=== PATIENT | female | born 1970 | race Caucasian/White ===

== ENCOUNTER 2016-12-13 07:33 | Day surgery (SDC) | payer BC ==
[~2016-12-13 07:33] MED LIST: Bupivacaine 0.25%/EPINEPHrine 1:200,000 10 ML SDV ONE; Midazolam 1 MG/ML 2 ML SDV ONE; Ondansetron 4 MG/2 ML SDV ONE; Propofol 200 MG/20 ML SDV ONE; Tetracaine 0.5% Ophth Soln 15 ML Bottle ONE; fentaNYL 100 MCG/2 ML SDV ONE
[2016-12-13] MEDS ORDERED: Dexamethasone/Tobramycin 0.1-0.3% Ophth Oint 3.5 GM Tube ONE (07:36)
[2016-12-13] MEDS ORDERED: Propofol 200 MG/20 ML SDV ONE (07:38)
[2016-12-13] MEDS ORDERED: ceFAZolin 2 GM in Premix Bag 1 BAG IV ONE (08:00)
[2016-12-13] MEDS ORDERED: Dexamethasone/Tobramycin 0.1-0.3% Ophth Oint 3.5 GM Tube EYEBOTH SCH (08:00)
[2016-12-13] MEDS ORDERED: Bupivacaine 0.25%/EPINEPHrine 1:200,000 10 ML SDV INJECT ONE (08:00)
[2016-12-13] MEDS ORDERED: traMADol 50 MG Tab PO PRN (08:00)
[2016-12-13] MEDS ORDERED: Lactated Ringers 1,000 ML IV SCH (08:00)
--- NOTE | 2016-12-13 08:00 | PCM.PREANE ---
Preanesthetic Assessment - Anesthesia/Transfusion/Family Hx Anesthesia History: Prior Anesthesia Without Reaction Family History of Anesthesia Reaction: No Transfusion History: No Prior Transfusion(s) Intubation History: Unknown - Review of Systems General: No Symptoms Pulmonary: No Symptoms Cardiovascular: No Symptoms Gastrointestinal: No symptoms Neurological: No Symptoms Other: Reports: None - Physical Assessment O2 Sat by Pulse Oximetry: 96 Respiratory Rate: 16 Vital Signs: Last Vital Signs Temp 36.2 C 12/13/16 07:49 Pulse 78 12/13/16 07:49 Resp 16 12/13/16 07:49 BP 128/79 12/13/16 07:49 Pulse Ox 96 12/13/16 07:49 Height: 1.55 m Weight: 89.358 kg ASA Class: 2 Mental Status: Alert & Oriented x3 Airway Class: Mallampati = 2 Dentition: Reports: Normal Dentition, Broken Tooth/Teeth (small chip front upper tooth) Thyro-Mental Finger Breadths: 3 Mouth Opening Finger Breadths: 2 ROM/Head Extension: Full Lungs: Clear to auscultation, Normal respiratory effort Cardiovascular: Regular Rate, Regular Rhythm - Allergies Allergies/Adverse Reactions: Allergies Allergy/AdvReac Type Severity Reaction Status Date / Time No Known Allergies Allergy Verified 12/09/16 08:20 - Blood Blood Available: No - Anesthesia Plan Pre-Op Medication Ordered: None - Acknowledgements Anesthesia Type Planned: MAC Pt an Appropriate Candidate for the Planned Anesthesia: Yes Alternatives and Risks of Anesthesia Discussed w Pt/Guardian: Yes Pt/Guardian Understands and Agrees with Anesthesia Plan: Yes PreAnesthesia Questionnaire HEENT History: Reports: Other (See Below) Other HEENT History: glasses Genitourinary History: Reports: 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 [No Known Home Meds] 12/09/16 [History] - CURRENT (IN HOUSE) MEDS Current Meds: Current Medications Bupivacaine HCl/Epinephrine Bitart (Marcaine 0.25%/Epinephrine 1:200,000) 10 ml INJECT ONETIME ONE Stop: 12/13/16 08:01 Lactated Ringer's (Ringers, Lactated) 1,000 mls @ 125 mls/hr IV ASDIRECTED [facility] Last Admin: 12/13/16 07:54 Dose: 125 mls/hr Cefazolin Sodium/Dextrose 2 gm (/ Premix) 50 mls @ 100 mls/hr IV ONETIME ONE Stop: 12/13/16 08:29 Tobramycin/Dexamethasone (Tobradex Ophth Oint) 0 gm EYEBOTH Q4H GILL Tramadol HCl (Ultram) 50 mg PO Q4H PRN PRN Reason: Pain Discontinued Medications Fentanyl (Sublimaze) Confirm Administered Dose 100 mcg .ROUTE .STK-MED ONE Stop: 12/13/16 07:33 Midazolam HCl (Versed 1 Mg/Ml) Confirm Administered Dose 2 mg .ROUTE .STK-MED ONE Stop: 12/13/16 07:33 Ondansetron HCl (Zofran) Confirm Administered Dose 4 mg .ROUTE .STK-MED ONE Stop: 12/13/16 07:33 Propofol (Diprivan 20 Ml) Confirm Administered Dose 200 mg .ROUTE .STK-MED ONE Stop: 12/13/16 07:33 Propofol (Diprivan 20 Ml) Confirm Administered Dose 200 mg .ROUTE .STK-MED ONE Stop: 12/13/16 07:39 Tetracaine (Tetracaine 0.5% Ophth Soln) Confirm Administered Dose 15 ml .ROUTE .STK-MED ONE Stop: 12/13/16 07:31 Tobramycin/Dexamethasone (Tobradex Ophth Oint) Confirm Administered Dose 3.5 gm .ROUTE .STK-MED ONE Stop: 12/13/16 07:37
--- NOTE | 2016-12-13 10:35 | PCM.POSTAN ---
POST ANESTHESIA ASSESSMENT - MENTAL STATUS Mental Status: alert, oriented - RESPIRATORY Respiratory Status: respiratory rate WNL, airway patent, O2 saturation stable - CARDIOVASCULAR CV Status: pulse rate WNL, blood pressure stable - GASTROINTESTINAL GI Status: no symptoms - PAIN Pain Score: 0 - POST OP HYDRATION Hydration Status: adequate & stable
--- NOTE | 2016-12-13 10:36 | PCM48HPAN ---
Post Anesthesia Note - EVALUATION WITHIN 48HRS OF ANESTHETIC Vital Signs in Normal Range: Yes Patient Participated in Evaluation: Yes Respiratory Function Stable: Yes Airway Patent: Yes Cardiovascular Function Stable: Yes Hydration Status Stable: Yes Pain Control Satisfactory: Yes Nausea and Vomiting Control Satisfactory: Yes Mental Status Recovered: Yes
[2016-12-13 11:00] VITALS: BP 118/67
--- NOTE | 2016-12-13 15:11 | PCM.OPNOTE ---
- General Post-Op/Procedure Note Date of Surgery/Procedure: 12/13/16 Operative Procedure(s): excision of right lower eyelid lesion 1.5cm with complex 1.5cm closure of the lower lid. Pre Op Diagnosis: right lower eyelid nevus pending pathology Post-Op Diagnosis: Same Anesthesia Technique: Local, MAC Primary Surgeon: Nilam Akins Outdoor Studies Director: Bertha Baires Complications: None Condition: Good Free Text/Narrative:: Intake & Output 12/12/16 12/13/16 12/13/16 23:59 07:59 15:59 Intake Total 1200 Balance 1200
--- NOTE | 2016-12-18 13:29 | OR ---
SURGEON: ABEBA MOLINA MD DATE OF PROCEDURE: 12/13/2016 PREOPERATIVE DIAGNOSIS: Right lower eyelid nevus. POSTOP DIAGNOSIS: Right lower eyelid nevus causing visual obstruction and irritation with interning of eyelashes. PROCEDURES: Excision of right lower eyelid benign lesion 1.5 cm with complex 1.5 cm closure of the lower lid via wedge excision. ANALYSIS CONSULTANT: Bertha Baires. ANESTHESIA: Local MAC. INDICATIONS: Ms. Mcneal is a 45-year-old female seen today in evaluation for right lower eyelid lesion. It is causing the irritation and continues to grow the distortion of the eyelids. This is causing additional irritation. Risks and benefits of excision were discussed with her, and she was in agreement to proceed. Given its appearance, it does appear to be a nevus; however, we cannot exclude any other malignant lesion. Given the changes, I would recommend excision. She would like to proceed. PROCEDURE IN DETAIL: After informed consent was obtained and placed on the chart, the patient was brought to the operating theater and laid in supine position. After adequate local MAC anesthetic was obtained, the corneal protector was placed and TobraDex ointment for lubrication. Tetracaine drops were used to anesthetize the eye prior to this. Once adequately prepped, attention was then paid to the right lower eyelid nevus. A wedge excision was designed and an iris scissor was used to dissect this full-thickness. Once excised, meticulous hemostasis was obtained and deep 5-0 Monocryl sutures were used to reapproximate the castro line and the lower lash line. Once this was completed, attention was then paid to closure of the skin using a 5-0 fast-absorbing gut suture, which was tied down to avoid irritation of the eyes with the suture end. Once this was completed, the area was dressed with TobraDex. FOLLOWUP INSTRUCTIONS: The patient will see us in clinic in one week or sooner if any problems, questions, or concerns. CHRISGGTCHRIS / BEBE /[id number]
== END 2016-12-13 10:34 | disposition home or self-care (01) ==
LOC: MW.SDS 07:33
PROVIDERS: ATTEND Plastic Surgery
DX: D22.11 Melanocytic nevi of right eyelid, including canthus (principal); E66.9 Obesity, unspecified; Z68.30 Body mass index [BMI] 30.0-30.9, adult; Z90.49 Acquired absence of other specified parts of digestive tract; Z88.1 Allergy status to other antibiotic agents; Z91.018 Allergy to other foods; Z90.710 Acquired absence of both cervix and uterus; Z98.51 Tubal ligation status; Z98.890 Other specified postprocedural states; Z79.899 Other long term (current) drug therapy
CPT/HCPCS: 67840; 88305; A9270; J2250; J2405; J3010; J7120; 00103; J2704

== ENCOUNTER 2016-12-29 13:54 | Emergency (ER) | payer BC ==
[2016-12-29 14:09] VITALS: BP 150/74
[2016-12-29] MEDS ORDERED: Proparacaine 0.5% Ophth Soln 15 ML Bottle EYERT ONE (14:15)
[2016-12-29] MEDS ORDERED: Sulfacetamide 10% Ophth Soln 15 ML Bottle EYERT ONE (14:39)
--- NOTE | 2016-12-29 14:47 | EDM.PDOC ---
ED HPI GENERAL MEDICAL PROBLEM - General Chief Complaint: Eye Problems Stated Complaint: PAIN RT EYE Time Seen by Provider: 12/29/16 14:15 Source of Information: Reports: Patient History Limitations: Reports: No Limitations - History of Present Illness INITIAL COMMENTS - FREE TEXT/NARRATIVE: HISTORY AND PHYSICAL: History of present illness: [Patient comes to the ER for evaluation of a lesion to her R lower eyelid. She had a growth removed from her lower eyelid on December [address] Akins. Was found to be noncancerous. Dissolvable sutures were placed and patient believes that all have dissolved. Patient states that she has had no complications and Dr. Akins has been pleased with her progress. She was prescribed neomycin eyedrops and developed increased redness and swelling to her eye. She was switched to TobraDex with the same results. Patient is concerned as her eye appears more erythematous and mattery. She denies pain to her sclera. No blurred vision or double vision other than that due to mattering. Feels sensitive to light.] Review of systems: As per history of present illness and below otherwise all systems reviewed and negative. Past medical history: As per history of present illness and as reviewed below otherwise noncontributory. Surgical history: As per history of present illness and as reviewed below otherwise noncontributory. Social history: No reported history of drug or alcohol abuse. Family history: As per history of present illness and as reviewed below otherwise noncontributory. Physical exam: HEENT: Atraumatic, normocephalic. Wearing sunglasses. Proparacaine drops are applied to R eye to ease examination. Healing excision site to mid right lower eyelid. White granulation tissue present. Sutures present to the deep aspect of the site. No injection to sclera. Lower conjunctiva is erythematous. No eye swelling or erythematous streaking surrounding eye. Extremities: Atraumatic. Neuro: Awake, alert, oriented. Motor and sensory unremarkable throughout. Exam nonfocal. Therapeutics: [Sulfacetamide eye drops] Impression: [Healing biopsy site R conjunctivitis] Plan: [Sulfacetamide eye drops 2 drops to R eye every 3-4 hours. Follow up with Dr. Akins tomorrow. She is given a note excusing her from work tomorrow. She is in agreement w/ today's plan. ] Definitive disposition and diagnosis as appropriate pending reevaluation and review of above. Left Eye Pain Score (Numeric/FACES): 8 - Related Data Allergies Allergy/AdvReac Type Severity Reaction Status Date / Time dexamethasone Allergy Swollen Verified 12/29/16 14:03 Eyes melon Allergy Rash Verified 12/13/16 08:17 neomycin Allergy Swollen Verified 12/13/16 09:17 Eyes strawberry Allergy Rash Verified 12/13/16 08:17 tobramycin Allergy Swollen Verified 12/29/16 14:03 Eyes Home Meds: Home Meds . 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: Neurological History: Reports: Migraines Endocrine/Metabolic History: Reports: Obesity/BMI 30+ - Past Surgical History Head Surgeries/Procedures: Reports: None HEENT Surgical History: Reports: Adenoidectomy, Tonsillectomy GI Surgical History: Reports: Cholecystectomy Female Surgical History: Reports: Hysterectomy, Tubal Ligation Social & Family History - Family History Family Medical History: Noncontributory - Tobacco Use Smoking Status *Q: Never Smoker Second Hand Smoke Exposure: No - Alcohol Use Days Per Week of Alcohol Use: 0 - Recreational Drug Use Recreational Drug Use: No ED ROS GENERAL - Review of Systems Review Of Systems: ROS reveals no pertinent complaints other than HPI. ED EXAM GENERAL W FULL EYE - Physical Exam Exam: See Below Course - Vital Signs Last Recorded V/S: Last Vital Signs Temp 97.3 F 12/29/16 14:05 Pulse 74 12/29/16 14:05 Resp 18 12/29/16 14:05 BP 150/74 H 12/29/16 14:05 Pulse Ox 98 12/29/16 14:05 - Orders/Labs/Meds Meds: Medications Discontinued Medications Generic Name Dose Route Start Last Admin Trade Name Freq PRN Reason Stop Dose Admin Proparacaine HCl 2 ml 12/29/16 14:15 12/29/16 14:23 Proparacaine 0.5% Ophth Soln EYERT 12/29/16 14:16 2 drop ONETIME ONE Administration Sulfacetamide 1 ml 12/29/16 14:39 12/29/16 14:56 Bleph-10 Ophth Soln EYERT 12/29/16 14:40 2 drop ONETIME ONE Administration Departure - Departure Time of Disposition: 14:45 Disposition: Home, Self-Care 01 Condition: Good Clinical Impression: Conjunctivitis Qualifiers: Conjunctivitis type: acute Acute conjunctivitis type: unspecified Laterality: right Qualified Code(s): H10.31 - Unspecified acute conjunctivitis, right eye - Discharge Information Instructions: Bacterial Conjunctivitis Referrals: Day Hebert DO [Primary Care Provider] - Forms: ED Department Discharge Additional Instructions: The following information is given to patients seen in the emergency department who are being discharged to home. This information is to outline your options for follow-up care. We provide all patients seen in our emergency department with a follow-up referral. The need for follow-up, as well as the timing and circumstances, are variable depending upon the specifics of your emergency department visit. If you don't have a primary care physician on staff, we will provide you with a referral. We always advise you to contact your personal physician following an emergency department visit to inform them of the circumstance of the visit and for follow-up with them and/or the need for any referrals to a consulting specialist. The emergency department will also refer you to a specialist when appropriate. This referral assures that you have the opportunity for follow-up care with a specialist. All of these measure are taken in an effort to provide you with optimal care, which includes your follow-up. Under all circumstances we always encourage you to contact your private physician who remains a resource for coordinating your care. When calling for follow-up care, please make the office aware that this follow-up is from your recent emergency room visit. If for any reason you are refused follow-up, please contact the [facility] emergency department at and asked to speak to the emergency department charge nurse. [facility]- [facility] [address] [place] [address], [address] [place] [address] Akins tomorrow. Use sulfacetamide drops. 2 drops every 4 hours. Return to ER as needed as discussed.
== END 2016-12-29 15:03 | disposition home or self-care (01) ==
LOC: MW.ED 13:54
DX: H10.31 Unspecified acute conjunctivitis, right eye (principal); E66.9 Obesity, unspecified; Z88.8 Allergy status to other drugs, medicaments and biological substances; Z88.1 Allergy status to other antibiotic agents; Z98.890 Other specified postprocedural states; Z90.710 Acquired absence of both cervix and uterus; Z90.49 Acquired absence of other specified parts of digestive tract
CPT/HCPCS: 99282; A9270; 99283

== ENCOUNTER 2017-01-01 10:44 | Day surgery (SDC) | payer BC ==
[~2017-01-01 10:44] MED LIST changes: +Dexamethasone/Tobramycin 0.1-0.3% Ophth Oint 3.5 GM Tube ONE; -Midazolam 1 MG/ML 2 ML SDV ONE; -Ondansetron 4 MG/2 ML SDV ONE; -Propofol 200 MG/20 ML SDV ONE; -fentaNYL 100 MCG/2 ML SDV ONE
[2017-01-01] MEDS ORDERED: Lactated Ringers 1,000 ML IV SCH (11:00)
--- NOTE | 2017-01-01 11:18 | PCM.PREANE ---
Preanesthetic Assessment - Anesthesia/Transfusion/Family Hx Anesthesia History: Prior Anesthesia Without Reaction Family History of Anesthesia Reaction: No Transfusion History: No Prior Transfusion(s) Intubation History: Unknown - Review of Systems General: No Symptoms Pulmonary: No Symptoms Cardiovascular: No Symptoms Gastrointestinal: No Symptoms Neurological: No Symptoms Other: Reports: None - Physical Assessment Height: 1.55 m Weight: 88.9 kg ASA Class: 2 Mental Status: Alert & Oriented x3 Airway Class: Mallampati = 2 Dentition: Reports: Normal Dentition Thyro-Mental Finger Breadths: 2 Mouth Opening Finger Breadths: 3 ROM/Head Extension: Full Lungs: Clear to Auscultation, Normal Respiratory Effort Cardiovascular: Regular Rate, Regular Rhythm - Allergies Allergies/Adverse Reactions: Allergies Allergy/AdvReac Type Severity Reaction Status Date / Time dexamethasone Allergy Swollen Verified 12/29/16 14:03 Eyes melon Allergy Rash Verified 12/13/16 08:17 neomycin Allergy Swollen Verified 12/13/16 09:17 Eyes strawberry Allergy Rash Verified 12/13/16 08:17 tobramycin Allergy Swollen Verified 12/29/16 14:03 Eyes - Blood Blood Available: No - Anesthesia Plan Pre-Op Medication Ordered: None - Acknowledgements Anesthesia Type Planned: MAC Pt an Appropriate Candidate for the Planned Anesthesia: Yes Alternatives and Risks of Anesthesia Discussed w Pt/Guardian: Yes Pt/Guardian Understands and Agrees with Anesthesia Plan: Yes PreAnesthesia Questionnaire HEENT History: Reports: Other (See Below) Other HEENT History: glasses Genitourinary History: Reports: 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: Neurological History: Reports: Migraines Endocrine/Metabolic History: Reports: Obesity/BMI 30+ - Past Surgical History Head Surgeries/Procedures: Reports: None HEENT Surgical History: Reports: Adenoidectomy, Tonsillectomy Other HEENT Surgeries/Procedures: exc of rt eyelid lesion 2 weeks ago,followed by wound dehiscence GI Surgical History: Reports: Cholecystectomy Female Surgical History: Reports: Hysterectomy, Tubal Ligation - SUBSTANCE USE Smoking Status *Q: Never Smoker Second Hand Smoke Exposure: No Days Per Week of Alcohol Use: 0 Recreational Drug Use History: No - HOME MEDS Home Medications: Home Meds Dexamethasone [Decadron 0.1% Ophth Soln] 2 drop EYERT BID 12/31/16 [History] - CURRENT (IN HOUSE) MEDS Current Meds: Current Medications Lactated Ringer's (Ringers, Lactated) 1,000 mls @ 100 mls/hr IV ASDIRECTED GILL Discontinued Medications Bupivacaine HCl/Epinephrine Bitart (Marcaine 0.25%/Epinephrine 1:200,000) Confirm Administered Dose 10 ml .ROUTE .STK-MED ONE Stop: 01/01/17 07:24 Tetracaine (Tetracaine 0.5% Ophth Soln) Confirm Administered Dose 15 ml .ROUTE .STK-MED ONE Stop: 01/01/17 10:09 Tobramycin/Dexamethasone (Tobradex Ophth Oint) Confirm Administered Dose 3.5 gm .ROUTE .STK-MED ONE Stop: 01/01/17 10:09
[2017-01-01] MEDS ORDERED: Ondansetron 4 MG/2 ML SDV ONE (13:06)
[2017-01-01] MEDS ORDERED: Propofol 200 MG/20 ML SDV ONE (13:06)
[2017-01-01] MEDS ORDERED: Midazolam 1 MG/ML 2 ML SDV ONE (13:07)
[2017-01-01] MEDS ORDERED: fentaNYL 100 MCG/2 ML SDV ONE (13:07)
[2017-01-01] MEDS ORDERED: Ketorolac 30 MG/ML SDV ONE (13:10)
[2017-01-01] MEDS ORDERED: ceFAZolin 1 GM Vial ONE (13:38)
[2017-01-01 14:46] VITALS: BP 101/75
--- NOTE | 2017-01-02 09:14 | PCM.OPNOTE ---
- General Post-Op/Procedure Note Date of Surgery/Procedure: 01/01/17 Operative Procedure(s): repair of wound dehiscence right lower eyelid Pre Op Diagnosis: wound dehiscence right lower eyelid Post-Op Diagnosis: Same Anesthesia Technique: Local, MAC Primary Surgeon: Nilam Akins Clinical Secretary: Bertha Baires Complications: None Condition: Good Free Text/Narrative:: [id number]
--- NOTE | 2017-01-02 10:35 | OR ---
SURGEON: ABEBA MOLINA MD DATE OF PROCEDURE: 01/01/2017 PREOPERATIVE DIAGNOSIS: Wound dehiscence, right lower eyelid. POSTOPERATIVE DIAGNOSIS: Wound dehiscence, right lower eyelid. PROCEDURE: Repair of wound dehiscence, right lower eyelid 1.5 cm, simple repair. ANESTHESIA: Local MAC. TAR MAN: CAREY Johnson. INDICATIONS: Ms. Mcneal is a 46-year-old female, who had a wedge excision of her right lower eyelid for a changing nevus. She has unfortunately opened the wound some at the margin of the eyelid and deep stitch is now irritating the cornea. Risks and benefits of re-repair of the wound dehiscence were discussed with her and she was in agreement to proceed. Risks were including, but not limited to, bleeding, infection, damage to underlying or overlying structures, possible need for future interventions and possible scarring. PROCEDURE IN DETAIL: After informed consent was obtained and placed on the chart, the patient was brought to the operating theater and laid in supine position. After adequate local MAC anesthetic was obtained, the area was prepped and draped and a time- out was completed to confirm side and site. Topical tetracaine eyedrops were used to anesthetize the eye and local 0.25% Marcaine with epinephrine was injected into the area for pain control. Once this was completed, the area was copiously irrigated and prepped and draped in a normal fashion using a Betadine cleansing solution. The wound edges were freshened with the 15 blade by scrapping and then closed in an interrupted fashion using a 6-0 Prolene suture for the skin edge. This was done with two horizontal mattress stitches and the tails were left long and Steri-Strip to the cheek. She tolerated this well and all counts and needles were correct at the end of the case. FOLLOWUP INSTRUCTIONS: The patient will see us in 5 to 7 days for suture removal sooner if any problems, questions, or concerns. [place] / BEBE /[id number]
== END 2017-01-01 14:40 | disposition home or self-care (01) ==
LOC: MW.SDS 10:44
PROVIDERS: ATTEND Plastic Surgery
DX: T81.31XA Disruption of external operation (surgical) wound, not elsewhere classified, initial encounter (principal); D22.11 Melanocytic nevi of right eyelid, including canthus; Z98.890 Other specified postprocedural states
CPT/HCPCS: 12020; J0690; J2250; J2405; J3010; J7120; 00300; A9270-GY; J1885; J2704

== ENCOUNTER 2023-04-23 09:13 | Emergency (ER) | payer OTHER, BC ==
[2023-04-23] MEDS ORDERED: Diphtheria,Pertussis(Acell),Tetanus Vaccine 0.5 ML Syringe IM ONE (09:23)
[2023-04-23] MEDS ORDERED: Lidocaine 1% 5 ML VIAL INJECT ONE (09:23)
[2023-04-23 09:55] VITALS: BP 133/77; PULSE 78
== END 2023-04-23 09:58 | disposition home or self-care (01) ==
LOC: MW.ED 09:13
DX: S61.211A Laceration without foreign body of left index finger without damage to nail, initial encounter (principal); E66.9 Obesity, unspecified; Z90.49 Acquired absence of other specified parts of digestive tract; Z90.710 Acquired absence of both cervix and uterus; Z88.8 Allergy status to other drugs, medicaments and biological substances; Z91.018 Allergy to other foods; Z68.30 Body mass index [BMI] 30.0-30.9, adult; Z88.1 Allergy status to other antibiotic agents; Z23 Encounter for immunization; W26.8XXA Contact with other sharp object(s), not elsewhere classified, initial encounter; Y99.0 Civilian activity done for income or pay
CPT/HCPCS: 12002; 90471; 90715; 99282-25; 99283; J3490

== ENCOUNTER 2023-05-22 11:11 | Day surgery (SDC) | payer BC, OTHER ==
[~2023-05-22 11:11] MED LIST changes: -Bupivacaine 0.25%/EPINEPHrine 1:200,000 10 ML SDV ONE; -Dexamethasone/Tobramycin 0.1-0.3% Ophth Oint 3.5 GM Tube ONE; +Lactated Ringers 1,000 ML IV SCH; +Sodium Chloride 0.9% 10 ML Syringe FLUSH PRN; +Sodium Chloride 0.9% 2.5 ML Syringe FLUSH PRN; +Sodium Chloride 0.9% 20 ML SDV IV PRN; -Tetracaine 0.5% Ophth Soln 15 ML Bottle ONE
[2023-05-22] MEDS ORDERED: propofoL 50 ML ONE (13:34)
[2023-05-22] MEDS ORDERED: Lidocaine 2% 5 ML SDV ONE (13:38)
[2023-05-22] MEDS ORDERED: Ondansetron 4 MG/2 ML SDV ONE (13:38)
[2023-05-22 14:43] VITALS: PULSE 72
[2023-05-22 14:54] VITALS: BP 124/72
== END 2023-05-22 15:21 | disposition home or self-care (01) ==
LOC: MW.SDS 11:11
PROVIDERS: ATTEND Surgery
DX: K31.7 Polyp of stomach and duodenum (principal); I78.1 Nevus, non-neoplastic; K21.9 Gastro-esophageal reflux disease without esophagitis; K59.09 Other constipation; E66.9 Obesity, unspecified; Z68.30 Body mass index [BMI] 30.0-30.9, adult; Z79.899 Other long term (current) drug therapy; Z88.8 Allergy status to other drugs, medicaments and biological substances
CPT/HCPCS: 43239; 43251; 45380; J2405; J2704; J7120; 00813; J3490

== ENCOUNTER 2023-11-28 08:10 | Emergency (ER) | payer OTHER, BC ==
[2023-11-28] MEDS: Ondansetron 4 MG Tab.DIS PO ONE (08:43)
[2023-11-28] MEDS: Sodium Chloride 0.9% 1,000 ML IV ONE (10:03)
[2023-11-28] MEDS: diphenhydrAMINE 50 MG/ML SDV IVPUSH ONE (10:03)
[2023-11-28] MEDS: Sodium Chloride 0.9% 10 ML Syringe FLUSH PRN (10:04)
[2023-11-28] MEDS: Sodium Chloride 0.9% 2.5 ML Syringe FLUSH PRN (10:04)
[2023-11-28] MEDS: Metoclopramide 10 MG/2 ML SDV IVPUSH ONE (10:04)
[2023-11-28 10:19] LABS: BASOPHILS ABSOLUTE AUTO 0.03 K/uL (0.00-0.20); BASOPHILS PERCENT AUTO 0.6 % (0.0-1.0); EOSINOPHILS ABSOLUTE AUTO 0.11 K/uL (0.00-0.45); EOSINOPHILS PERCENT AUTO 2.2 % (0.0-6.0); HEMOGLOBIN 14.5 g/dL (12.0-16.0); LYMPHOCYTES ABSOLUTE AUTO 2.08 K/uL (1.00-4.80); MEAN CORPUSCULAR HEMOGLOBIN 30.1 pg (28.0-32.0); MEAN CORPUSCULAR HGB CONC 34.5 g/dL (32.0-36.0); MEAN CORPUSCULAR VOLUME 87.3 fL (83.0-99.0); MEAN PLATELET VOLUME 9.9 fL (9.4-12.3); MONOCYTES ABSOLUTE AUTO 0.29 K/uL (0.00-0.80); MONOCYTES PERCENT AUTO 5.7 % (0.0-8.0); NEUTROPHILS ABSOLUTE AUTO 2.56 K/uL (1.80-7.70); NEUTROPHILS PERCENT AUTO 50.5 % (41.0-71.0); PLATELET COUNT,PLT 181 K/uL (150-400); RED BLOOD CELL COUNT 4.81 M/uL (4.10-5.30); WHITE BLOOD CELL COUNT,WBC 5.07 K/uL (3.9-11.3)
[2023-11-28 10:44] LABS: CALCIUM 8.9 mg/dL (8.5-10.1); CARBON DIOXIDE,CO2 28.9 mmol/L (21.0-32.0); CREATININE 0.7 mg/dL (0.6-1.0); EST CRCL DRUG DOSING (CG) 70.13 mL/min; POTASSIUM,K 4.4 mmol/L (3.5-5.1)
[2023-11-28 11:05] VITALS: BP 129/68; PULSE 71
== END 2023-11-28 12:14 | disposition home or self-care (01) ==
LOC: MW.ED 08:10
DX: S06.0X0A Concussion without loss of consciousness, initial encounter (principal); K21.9 Gastro-esophageal reflux disease without esophagitis; Z88.8 Allergy status to other drugs, medicaments and biological substances; Z88.1 Allergy status to other antibiotic agents; Z91.018 Allergy to other foods; Z79.899 Other long term (current) drug therapy; Z90.49 Acquired absence of other specified parts of digestive tract; Z90.710 Acquired absence of both cervix and uterus; W22.8XXA Striking against or struck by other objects, initial encounter; Y93.89 Activity, other specified; Y99.0 Civilian activity done for income or pay
CPT/HCPCS: 36415; 70450; 72125; 80048; 85025; 96374; 96375; 99284; A9270; J1200; J2765; J3490; J7030